=== PATIENT | female | born 1970 | race Hispanic/Latino ===

== ENCOUNTER 2016-12-21 16:06 | Outpatient (CLI) | payer MEDICARE | END 2016-12-21 16:07 | disposition home or self-care (01) | LOC: LABHHL 16:06 | PROVIDERS: ATTEND Surgery | DX: D48.7 Neoplasm of uncertain behavior of other specified sites (principal); D63.0 Anemia in neoplastic disease; N63 Unspecified lump in breast | CPT/HCPCS: 88104; 88112; 88305; 88361 ==

== ENCOUNTER 2016-12-30 08:21 | Outpatient (CLI) | payer MEDICARE ==
--- NOTE | 2016-12-30 15:44 | Magnetic Resonance Report ---
BILATERAL BREAST MRI WITHOUT AND WITH CONTRAST: 12/30/16 08:21:00 CLINICAL: Newly diagnosed right breast cancer. Status post needle biopsy of a right breast mass at 3 o'clock on 12/21/16 with pathologic diagnosis of invasive ductal carcinoma, Courtney grade 1/3. COMPARISON:12/18/16 bilateral mammogram.. TECHNIQUE: Axial 1.0-mm T1 without, axial high resolution 2.0-mm T2 and axial 1.0-mm dynamic Vibrant high-resolution postcontrast T1 fat saturation sequences on a 1.5 Kayla magnet. The examination was performed with an 8 channel dedicated [place] breast coil. Post processing with CAD and subtraction was performed on an [employer] workstation. 20 cc of Multihance was injected without incident for the contrast portion of the exam. Consent was obtained prior to the administration of the contrast. FINDINGS: Right: Mild background parenchymal enhancement. An irregular enhancing mass at 3 o'clock 5 cm from the nipple measures approximately 8.8 x 4.5 x 3.5 cm. The largest portion of the mass measures 5 cm in the AP l dimension and there is an additional 3 cm posterior extension of the mass. The mass demonstrates heterogeneous enhancement with mixed kinetics and 28% type III washout. No other mass or suspicious enhancement of the right breast. Pronounced skin thickening of the right breast measuring 9 mm in maximum thickness. However, no enhancement of the scan. A single level one right axillary lymph node has suspicious focal cortical thickening of 7 mm. The lymph node measures 1.6 x 1.0 cm. No other suspicious lymph nodes. Left: Mild background parenchymal enhancement. No mass or suspicious enhancement of the left breast. No suspicious left axillary or left internal mammary lymph nodes. IMPRESSION: Known right breast cancer measuring 8.8 cm in maximum dimension. No additional suspicious lesion of either breast. However, one suspicious right axillary lymph node. RIGHT BI-RADS 6 -- Known Cancer LEFT BI-RADS 1 -- Negative
== END 2016-12-30 08:22 | disposition home or self-care (01) ==
LOC: SPVIMAG 08:21
PROVIDERS: ATTEND Surgery
DX: C50.911 Malignant neoplasm of unspecified site of right female breast (principal)
CPT/HCPCS: 0159T; A9577; C8908; 77059